=== PATIENT | male | born 1950 | race Caucasian/White ===

== ENCOUNTER 2017-08-26 12:01 | Emergency (ER) | payer MEDICARE, OTHER ==
[2017-08-26 12:16] VITALS: BP 94/55
--- NOTE | 2017-08-26 12:42 | XRAY Report ---
Procedure Date: 08/26/2017 Accession Number: [id number] / [id number] Procedure: XR - Shoulder 3 View LT CPT Code: FULL RESULT: EXAM: LEFT SHOULDER RADIOGRAPHY EXAM DATE: 08/26/2017 12:30 PM. CLINICAL HISTORY: GLF shoulder pain. COMPARISON: None. TECHNIQUE: 4 views. FINDINGS: Bones: Acute transverse fracture at the surgical neck of the left humerus with mild impaction and mild posterior angulation. There also is a mildly displaced fracture of the humeral greater tuberosity. Joints: The glenohumeral and acromioclavicular joints are normal. Soft tissues: Mild soft tissue swelling over the lateral aspect of the left shoulder. IMPRESSION: Mildly impacted and angulated fracture of the surgical neck of the left humerus. Mildly displaced fracture of the left humeral greater tuberosity. RADIA
--- NOTE | 2017-08-26 13:27 | ED Physician Documentation ---
PD HPI UPPER EXT INJURY - Stated complaint Stated Complaint: GLF/ L ARM PX - Chief complaint Chief Complaint: Ext Problem - History obtained from History obtained from: Patient - History of Present Illness Location: Left, Shoulder, Arm Type of injury: Fall (slipped coming out of shower.) Where injury occurred: Home Timing - onset: How many days ago (5) Timing - duration: Days (5) Timing - details: Abrupt onset, Still present Worsened by: Moving, Palpating Associated symptoms: No: Weakness, Numbness, Swelling Contributing factors: No: Anticoagulated Similar symptoms before: Has not had sx before Recently seen: Not recently seen Review of Systems Constitutional: denies: Fever, Chills Nose: denies: Rhinorrhea / runny nose, Congestion Throat: denies: Sore throat Respiratory: denies: Cough GI: denies: Vomiting, Diarrhea Skin: denies: Abrasion (s), Laceration (s) Musculoskeletal: reports: Joint pain (just right shoulder) Neurologic: denies: Focal weakness, Numbness PD PAST MEDICAL HISTORY - Past Medical History Cardiovascular: Hypertension Psych: Bipolar disorder, Panic attacks, Post traumatic stress disorder - Past Surgical History General: Hiatal hernia repair - Present Medications Home Medications: Ambulatory Orders Medication Instructions Recorded Confirmed Gabapentin 600 mg 03/24/14 03/24/14 Lisinopril 40 mg 03/24/14 03/24/14 Simvastatin 03/24/14 03/24/14 diazePAM [Valium] 5 mg 03/24/14 03/24/14 traMADol [Ultram] 50 mg 03/24/14 03/24/14 HYDROcod/ACETAM 5/325 [Zearing 5/325] 1 tab PO Q6H PRN #20 tablet 08/26/17 Naproxen 375 mg PO BID #20 tablet 08/26/17 - Allergies Allergies/Adverse Reactions: Allergies Allergy/AdvReac Type Severity Reaction Status Date / Time NSAIDS (Non-Steroidal Allergy Unknown Verified 08/26/17 13:52 Anti-Inflamma - Social History Does the pt smoke?: No Smoking Status: Never smoker Does the pt drink ETOH?: Yes - Immunizations Immunizations are current?: Yes PD ED PE NORMAL - Vitals Vital signs reviewed: Yes - General General: Alert and oriented X 3, No acute distress (he seems comfortable if holding arm still to his side. ), Well developed/nourished - HEENT HEENT: Atraumatic - Neck Neck: Supple, no meningeal sign, No bony TTP, No adenopathy - Cardiac Cardiac: RRR, No murmur - Respiratory Respiratory: Clear bilaterally, Other (no chestwall tenderness) - Derm Derm: Normal color, Warm and dry - Extremities Extremities: Other (elbow and wrist not tender with good independent ROM. Right shoulder has guarded ROM and pain with any slight ROM. No gross deformity. ) - Neuro Neuro: Alert and oriented X 3, No motor deficit, No sensory deficit, Normal speech Results - Vitals Vitals: Oxygen O2 Source Room air - Rads (name of study) humerus Radiology: Prelim report reviewed, EMP read contemporaneously (humeral neck fracture, impacted, nondisplaced. ) PD MEDICAL DECISION MAKING - ED course Complexity details: reviewed results, considered differential, d/w patient - Sepsis Event Vital Signs: Oxygen O2 Source Room air Departure - Departure Disposition: 01 Home, Self Care Clinical Impression: Fall from slip, trip, or stumble Qualifiers: Encounter type: initial encounter Qualified Code(s): W01.0XXA - Fall on same level from slipping, tripping and stumbling without subsequent striking against object, initial encounter Fx humeral neck Qualifiers: Encounter type: initial encounter Fracture type: closed Laterality: left Qualified Code(s): S42.212A - Unspecified displaced fracture of surgical neck of left humerus, initial encounter for closed fracture Condition: Stable Record reviewed to determine appropriate education?: Yes Instructions: ED Fx Shoulder Follow-Up: Julio C Jhaveri MD [Primary Care Provider] - [facility] [Provider Group] Prescriptions: HYDROcod/ACETAM 5/325 [Zearing 5/325] 1 tab PO Q6H PRN #20 tablet PRN Reason: Pain Naproxen 375 mg PO BID #20 tablet Comments: Use a sling for the arm for the next 3-4 weeks. Very gentle range of motion of the shoulder to keep her from being stiff. Follow-up with orthopedics in about a week, call for an appointment. Use anti-inflammatories such as naproxen or ibuprofen twice daily for the next 7-10 days. Add Tylenol or hydrocodone if needed for pain at times. Sleep and rest in the best position of comfort. Discharge Date/Time: 08/26/17 14:18
[2017-08-26] MEDS ORDERED: NAPROXEN 250 MG TABLET PO STA (13:43)
[2017-08-26] MEDS ORDERED: ACETAMINOPHEN 325 MG TABLET PO STA (13:43)
== END 2017-08-26 14:18 | disposition home or self-care (01) ==
LOC: ED 12:01
DX: S42.212A Unspecified displaced fracture of surgical neck of left humerus, initial encounter for closed fracture (principal); W18.2XXA Fall in (into) shower or empty bathtub, initial encounter; I10 Essential (primary) hypertension
CPT/HCPCS: 73030; 99282; 99283; A9270

== ENCOUNTER 2018-02-26 14:34 | Emergency (ER) | payer OTHER ==
--- NOTE | 2018-02-26 15:55 | XRAY Report ---
Reason: fall Procedure Date: 02/26/2018 Accession Number: [id number] / [id number] Procedure: XR - Hip w/Pelvis 2-3V RT CPT Code: FULL RESULT: EXAM: RIGHT HIP AND PELVIS RADIOGRAPHY EXAM DATE: 02/26/2018 03:42 PM. HISTORY: Fall, pain. COMPARISONS: None. TECHNIQUE: 1 view of the pelvis and 1 view of the hip. FINDINGS: Bones: Right acetabular fracture with comminution and protrusio. No other definite fracture or bone lesion. Joints: Mild bilateral hip joint space narrowing with marginal lipping. Unremarkable SI joints and pubic symphysis. Soft Tissues: Nonspecific bowel gas. Surgical clip in the lower pelvis. IMPRESSION: Right acetabular fracture. RADIA
--- NOTE | 2018-02-26 17:11 | ED Physician Documentation ---
PD HPI LOWER EXT INJURY - Stated complaint Stated Complaint: RT HIP PX - Chief complaint Chief Complaint: Trauma Ext - History obtained from History obtained from: Patient - History of Present Illness PD HPI LOW EXT INJURY LOCATION: Right, Hip Type of injury: Fall Where injury occurred: Home Timing - onset: How many days ago (3) Timing - duration: Days Timing - details: Abrupt onset (he says he slipped in bare feet and fell to the right. Pain at right hip. Has marked pain with walking to bathroom, using cane, and has been in bed mainly otherwise. Denies other imjury.) Improved by: Rest Worsened by: Moving, Other (weight bearing). No: Palpating Associated symptoms: No: Weakness, Numbness, Tingling Contributing factors: No: Anticoagulated, Prior ortho surgery Similar symptoms before: Has not had sx before Recently seen: Not recently seen Review of Systems Constitutional: denies: Fever, Chills Nose: denies: Rhinorrhea / runny nose, Congestion Throat: denies: Sore throat Cardiac: denies: Chest pain / pressure Respiratory: denies: Cough GI: denies: Abdominal Pain, Vomiting, Diarrhea Musculoskeletal: denies: Neck pain, Back pain Neurologic: denies: Focal weakness, Numbness, Altered mental status, Headache, Head injury PD PAST MEDICAL HISTORY - Past Medical History Cardiovascular: Hypertension Psych: Bipolar disorder, Panic attacks, Post traumatic stress disorder Musculoskeletal: None - Past Surgical History Past Surgical History: Yes General: Hiatal hernia repair - Present Medications Home Medications: Ambulatory Orders Medication Instructions Recorded Confirmed Gabapentin 600 mg PO Q6HR 03/24/14 02/26/18 Lisinopril 40 mg PO DAILY 03/24/14 02/26/18 diazePAM [Valium] 5 mg PO Q6HR 03/24/14 02/26/18 traMADol [Ultram] 50 mg PO Q6HR 03/24/14 02/26/18 Carvedilol [Coreg] 1 tab PO BID 02/26/18 02/26/18 Docusate Sodium 100 mg PO DAILY #30 capsule 02/26/18 Oxycodone HCl/Acetaminophen 1 each PO Q6H PRN #25 tablet 02/26/18 [Percocet 5-325 mg Tablet] amLODIPine [Norvasc] 1 tab PO DAILY 02/26/18 02/26/18 - Allergies Allergies/Adverse Reactions: Allergies Allergy/AdvReac Type Severity Reaction Status Date / Time NSAIDS (Non-Steroidal Allergy Unknown Verified 02/26/18 14:46 Anti-Inflamma - Social History Does the pt smoke?: No Smoking Status: Never smoker Does the pt drink ETOH?: Yes Does the pt have substance abuse?: No - Immunizations Immunizations are current?: Yes - POLST Patient has POLST: No PD ED PE NORMAL - Vitals Vital signs reviewed: Yes - General General: Alert and oriented X 3, No acute distress (seems comfortable lying; has moderate pain with ROM of the hip on the cart and with impaction and rotational movement. Will try ambulating with walker. ), Well developed/nourished - HEENT HEENT: Atraumatic - Neck Neck: Supple, no meningeal sign, No bony TTP - Cardiac Cardiac: RRR, No murmur - Respiratory Respiratory: Clear bilaterally - Abdomen Abdomen: Soft, Non tender - Back Back: No CVA TTP, No spinal TTP - Derm Derm: Normal color - Extremities Extremities: Other (right hip tender on ROM and with impaction. No noted deformity. Good pulses and cap refill distally. ) - Neuro Neuro: No motor deficit, No sensory deficit Results - Vitals Vitals: Oxygen O2 Source Room air - Rads (name of study) hip xray Radiology: Prelim report reviewed (hip okay; has acetabular fracture) pelvic CT Radiology: Prelim report reviewed (acetabular and iliac wing fractures as described in report. ), See rad report PD MEDICAL DECISION MAKING - ED course Complexity details: reviewed results, re-evaluated patient (he is able to walk with walker in ER. Pain control and functional ambulation is the del real factors, so he seems stable for discharge. ), considered differential, d/w patient Departure - Departure Disposition: 01 Home, Self Care Clinical Impression: Acetabular fracture Qualifiers: Encounter type: initial encounter Sublocation of acetabulum: unspecified portion of acetabulum Fracture type: closed Fracture alignment: nondisplaced Laterality: right Qualified Code(s): S32.401A - Unspecified fracture of right acetabulum, initial encounter for closed fracture Condition: Stable Record reviewed to determine appropriate education?: Yes Instructions: ED Fx Pelvis Follow-Up: Julio C Jhaveri MD [Primary Care Provider] - [facility] [Provider Group] Prescriptions: Docusate Sodium 100 mg PO DAILY #30 capsule Oxycodone HCl/Acetaminophen [Percocet 5-325 mg Tablet] 1 each PO Q6H PRN #25 tablet PRN Reason: pain Comments: You did break the acetabulum part of the pelvis and it does extend to the iliac wing. This will make it hurt with walking and weightbearing but is typically treated non-surgically with some support for weightbearing and light walking. Use Tylenol if needed for mild pain and Percocet if needed for worse pain. Use it daily stool softeners if you do not get constipated from the medication. Follow-up with your primary care in the next several days to week, call for an appointment tomorrow. See if they want you to follow-up with an orthopedist regarding the healing of this. Stay well-hydrated. Discharge Date/Time: 02/26/18 18:57
[2018-02-26] MEDS ORDERED: oxyCODONE 5 MG TABLET PO STA (17:47)
--- NOTE | 2018-02-26 18:28 | CT Report ---
Reason: ACETABULAR fracture on xray Procedure Date: 02/26/2018 Accession Number: [id number] / [id number] Procedure: CT - Pelvis W/O CPT Code: FULL RESULT: EXAM: CT BONY PELVIS WITHOUT CONTRAST EXAM DATE: 02/26/2018 05:55 PM. CLINICAL HISTORY: Acetabular fracture on x-ray. COMPARISON: None. TECHNIQUE: Thin-section axial images were acquired of the pelvis without contrast. Post-processing: Coronal and sagittal reformats. Other: None. In accordance with CT protocol optimization, one or more of the following dose reduction techniques were utilized for this exam: automated exposure control, adjustment of mA and/or KV based on patient size, or use of iterative reconstructive technique. FINDINGS: Bones: There is a comminuted fracture involving the anterior and posterior columns of the right acetabulum with mild medial displacement of fracture fragments up to 3 mm. There is superior fracture extension to the iliac wing. The fracture extends to the lateral margins of the right superior pubic ramus. No other pelvic fracture seen. Sacroiliac Joints: Degenerative changes with partial fusion of the sacroiliac joints. Symphysis Pubis: Unremarkable. Right Hip: Mild joint space narrowing with small marginal osteophytes. No dislocation. Left Hip: Mild joint space narrowing. Small marginal osteophytes. No dislocation. Musculature: Normal. No fatty atrophy. Pelvic Cavity: There is right pelvic sidewall and presacral hemorrhagic stranding. Slight enlargement of the right iliacus muscle secondary to hematoma. No evidence of urinary bladder disruption. Other: No lymphadenopathy. No free air or free fluid. The other visualized soft tissues are unremarkable. IMPRESSION: 1. Comminuted, mildly displaced both column right acetabular fracture with iliac wing extension. RADIA
[2018-02-26 18:50] VITALS: BP 154/86
== END 2018-02-26 18:57 | disposition home or self-care (01) ==
LOC: ED 14:34
DX: I10 Essential (primary) hypertension (principal); S32.431A Displaced fracture of anterior column [iliopubic] of right acetabulum, initial encounter for closed fracture; S32.441A Displaced fracture of posterior column [ilioischial] of right acetabulum, initial encounter for closed fracture; W01.0XXA Fall on same level from slipping, tripping and stumbling without subsequent striking against object, initial encounter; Y92.009 Unspecified place in unspecified non-institutional (private) residence as the place of occurrence of the external cause
CPT/HCPCS: 72192; 73502; 99283; A9270

== ENCOUNTER 2018-03-09 12:05 | Emergency (ER) | payer OTHER ==
[2018-03-09] MEDS ORDERED: HYDROmorphone 1 MG/ML CARPUJECT IVP STA (13:06)
[2018-03-09] MEDS ORDERED: SODIUM CHLORIDE 0.9% 1,000 ML IV ONE (13:06)
--- NOTE | 2018-03-09 13:08 | ED Physician Documentation ---
History of Present Illness - Stated complaint Stated Complaint: MED REFILL - Chief complaint Chief Complaint: General - History obtained from History obtained from: Patient - History of Present Illness Timing: Other (This is a 67-year-old gentleman with history of bipolar disorder repeated brain injuries with "87% he says of normal cognitive function. He has had a lot of falls recently and fell and broke his pelvis About a week ago. He has uncontrolled pain and is out of his pain medications and also says he cannot eat. When asked why he thinks he cannot eat he says he thinks it is because of his hypothalamus being injured in previous trauma. He has required tube feedings in the past. He did lie to me about his pain prescriptions. He says that he has not filled his tramadol yet this month but review of the [employer] shows that he filled 112 tramadol on February 13 of this month. That said it is understandable for him to be out early as he has a broken pelvis.) Review of Systems Ten Systems: 10 systems reviewed and negative Constitutional: reports: Fatigue, Weight Loss. denies: Fever, Chills Cardiac: denies: Chest pain / pressure, Palpitations Respiratory: denies: Dyspnea, Cough PD PAST MEDICAL HISTORY - Past Medical History Past Medical History: Yes Cardiovascular: Hypertension Psych: Bipolar disorder, Panic attacks, Post traumatic stress disorder - Past Surgical History Past Surgical History: Yes General: Hiatal hernia repair - Present Medications Home Medications: Ambulatory Orders Medication Instructions Recorded Confirmed Gabapentin 600 mg PO Q6HR 03/24/14 02/26/18 Lisinopril 40 mg PO DAILY 03/24/14 02/26/18 diazePAM [Valium] 5 mg PO Q6HR 03/24/14 02/26/18 traMADol [Ultram] 50 mg PO Q6HR 03/24/14 02/26/18 Carvedilol [Coreg] 1 tab PO BID 02/26/18 02/26/18 Docusate Sodium 100 mg PO DAILY #30 capsule 02/26/18 Oxycodone HCl/Acetaminophen 1 each PO Q6H PRN #25 tablet 02/26/18 [Percocet 5-325 mg Tablet] amLODIPine [Norvasc] 1 tab PO DAILY 02/26/18 02/26/18 Megestrol Acetate 5 ml PO BID #100 ml 03/09/18 Sodium Chloride 1,000 mg MC BID #10 tablet.roseann 03/09/18 traMADol [Ultram] 50 mg PO Q4-6H PRN #20 tablet 03/09/18 - Allergies Allergies/Adverse Reactions: Allergies Allergy/AdvReac Type Severity Reaction Status Date / Time NSAIDS (Non-Steroidal Allergy Unknown Verified 02/26/18 14:46 Anti-Inflamma - Social History Does the pt smoke?: No Smoking Status: Never smoker Does the pt drink ETOH?: Yes Does the pt have substance abuse?: No - Immunizations Immunizations are current?: Yes - POLST Patient has POLST: No PD ED PE NORMAL - Vitals Vital signs reviewed: Yes - General General: Alert and oriented X 3, No acute distress - HEENT HEENT: PERRL, EOMI - Neck Neck: Supple, no meningeal sign, No bony TTP - Cardiac Cardiac: RRR, No murmur - Respiratory Respiratory: No respiratory distress, Clear bilaterally - Abdomen Abdomen: Soft, Non tender - Derm Derm: Normal color, Warm and dry - Extremities Extremities: No edema, No calf tenderness / cord - Neuro Neuro: Alert and oriented X 3, Normal speech Results - Vitals Vitals: Vital Signs - 24 hr 03/09/18 12:14 Temperature 36.8 C Heart Rate 95 Respiratory 18 Rate Blood Pressure 145/68 H O2 Saturation 98 Oxygen O2 Source Room air - Labs Labs: Laboratory Tests 03/09/18 03/09/18 03/09/18 13:17 13:17 13:17 WBC 8.3 RBC 3.62 L Hgb 11.9 L Hct 33.5 L MCV 92.5 MCH 33.0 H MCHC 35.6 RDW 13.3 Plt Count 527 H MPV 6.4 L Neut # (Auto) 7.0 H Lymph # (Auto) 0.8 L [place] # (Auto) 0.6 Eos # (Auto) 0.0 Baso # (Auto) 0.0 Absolute Nucleated RBC 0.00 Nucleated RBC % 0.0 Sodium 121 L Potassium 3.8 Chloride 84 L Carbon Dioxide 27 Anion Gap 10.0 BUN 11 Creatinine 0.6 Estimated GFR (MDRD) 135 Glucose 133 H Calcium 9.2 Total Bilirubin 0.5 AST 23 ALT 16 Alkaline Phosphatase 173 H Total Protein 7.2 Albumin 3.7 Globulin 3.5 Albumin/Globulin Ratio 1.1 Prealbumin 21 Lipase 31 PD MEDICAL DECISION MAKING - ED course ED course: Is a 67-year-old gentleman with predominantly mental health issues but also some substance issues. He drinks every day and uses marijuana heavily every day for a long time presents with weight loss and anorexia. His prealbumin and albumin are normal. He requested a feeding tube but there is no medical indication for this at this juncture. He needs a refill of his pain medications and I will give him a limited amount given the recent pelvic fracture and will also trial some Megace. Departure - Departure Disposition: 01 Home, Self Care Clinical Impression: Anorexia, Hyponatremia Acetabular fracture Qualifiers: Encounter type: subsequent encounter Sublocation of acetabulum: unspecified portion of acetabulum Fracture type: closed Fracture alignment: nondisplaced Laterality: unspecified laterality Fracture healing: with routine healing Qualified Code(s): S32.409D - Unspecified fracture of unspecified acetabulum, subsequent encounter for fracture with routine healing Condition: Good Record reviewed to determine appropriate education?: Yes Instructions: ED Fx Pelvis Prescriptions: Megestrol Acetate 5 ml PO BID #100 ml Sodium Chloride 1,000 mg MC BID #10 tablet.roseann traMADol [Ultram] 50 mg PO Q4-6H PRN #20 tablet PRN Reason: Pain Comments: Decrease beer and marijuana intake. Follow-up with your doctor in 2-3 days for recheck. Further prescriptions for pain medication should come from your primary care physician.
[2018-03-09 13:24] LABS: BASOPHILS % (AUTO) 0.3 %; EOSINOPHILS % (AUTO) 0.2 %; HGB - HEMOGLOBIN 11.9 g/dL (14.0-18.0); LYMPHOCYTES # (AUTO) 0.8 10^3/uL (1.5-3.5); LYMPHOCYTES % (AUTO) 9.5 %; MEAN CORPUSCULAR HGB CONC 35.6 g/dL (32.0-36.0); MEAN CORPUSCULAR VOLUME 92.5 fL (80.0-94.0); MEAN PLATELET VOLUME 6.4 fL (7.4-11.4); MONOCYTES # (AUTO) 0.6 10^3/uL (0.0-1.0); MONOCYTES % (AUTO) 6.6 %; NEUTROPHILS % (AUTO) 83.4 %; PLT - PLATELET COUNT 527 10^3/uL (130-450); RED BLOOD COUNT 3.62 10^6/uL (4.70-6.10); RED CELL DISTRIBUTION WIDTH 13.3 % (12.0-15.0); WHITE BLOOD COUNT 8.3 x10^3/uL (4.8-10.8)
[2018-03-09 13:37] LABS: ALBUMIN 3.7 g/dL (3.2-5.5); ALBUMIN/GLOBULIN RATIO 1.1 (1.0-2.2); BILIRUBIN,TOTAL 0.5 mg/dL (0.2-1.0); CALCIUM 9.2 mg/dL (8.5-10.3); CREATININE 0.6 mg/dL (0.6-1.2); TOTAL PROTEIN 7.2 g/dL (6.7-8.2)
[2018-03-09 14:35] VITALS: BP 166/90
== END 2018-03-09 14:45 | disposition home or self-care (01) ==
LOC: ED 12:05
DX: G89.11 Acute pain due to trauma (principal); S32.409A Unspecified fracture of unspecified acetabulum, initial encounter for closed fracture; W19.XXXA Unspecified fall, initial encounter; E87.1 Hypo-osmolality and hyponatremia; R63.0 Anorexia; F10.10 Alcohol abuse, uncomplicated; F12.10 Cannabis abuse, uncomplicated; F31.9 Bipolar disorder, unspecified; I10 Essential (primary) hypertension; Z76.0 Encounter for issue of repeat prescription; Z91.81 History of falling
CPT/HCPCS: 36415; 80053; 82533; 83690; 84134; 85025; 96361; 96374; 99283; J1170

== ENCOUNTER 2018-04-05 10:13 | Outpatient (CLI) | payer OTHER | END 2018-04-05 10:14 | disposition short-term general hospital (02) | LOC: EMS 10:13 | PROVIDERS: ATTEND Surgery | DX: R07.9 Chest pain, unspecified (principal) | CPT/HCPCS: A0425; A0427 ==

== ENCOUNTER 2018-07-10 10:21 | Outpatient (CLI) | payer OTHER ==
--- NOTE | 2018-07-11 17:18 | XRAY Report ---
Reason: SPECIFIED ARTHRITIS BILAT KNEES HANDS Procedure Date: 07/10/2018 Accession Number: [id number] / [id number] Procedure: XR - Knee 3 View BILAT CPT Code: FULL RESULT: EXAMS: 1. Right Knee Radiography 2. Left Knee Radiography EXAM DATE:07/10/2018 11:10 AM. CLINICAL HISTORY:Bilateral knee pain. COMPARISON: None. TECHNIQUE: 3 views each. FINDINGS: Right Knee: Bones: Normal. No fractures or bone lesions. Joints: Minor marginal spurring is seen in the patellofemoral compartment. No significant joint space narrowing. No effusion. No subluxations. Soft Tissues: Moderate vascular calcification is present. Left Knee: Bones: Normal. No fractures or bone lesions. Joints: Minor marginal spurring is seen in the patellofemoral compartment. No significant joint space narrowing. No effusion. No subluxations. Soft Tissues: Moderate vascular calcification is present. IMPRESSION: 1. Minimal bilateral knee DJD. 2. No acute osseous abnormality. 3. Diffuse vascular calcification. RADIA
--- NOTE | 2018-07-11 17:18 | XRAY Report ---
Reason: SPECIFIED ARTHRITIS BILAT KNEES HANDS Procedure Date: 07/10/2018 Accession Number: [id number] / [id number] Procedure: XR - Hand 3 View BILAT CPT Code: FULL RESULT: EXAMS: 1. Right Hand Radiography 2. Left Hand Radiography EXAM DATE: 07/10/2018 11:10 AM. CLINICAL HISTORY: Bilateral hand pain. COMPARISON: XR FINGER MIN 2 VIEWS 08/20/2009 7:27 PM. TECHNIQUE: 3 views each hand. FINDINGS: Right: Bones: Partial amputation of the distal phalanx of the thumb is seen. No fractures or bone lesions. Joints: There is moderate to severe osteoarthritic changes seen in the first carpometacarpal joint. The remainder of the joint spaces are relatively preserved. Soft Tissues: Normal. No soft tissue swelling. Left: Bones: Normal. No fractures or bone lesions. Joints: There is moderate to severe osteoarthritic changes seen in the first carpometacarpal joint. The remainder of the joint spaces are relatively preserved. Soft Tissues: Normal. No soft tissue swelling. IMPRESSION: 1. 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 2. 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 No acute osseous abnormality. RADIA
== END 2018-07-10 10:22 | disposition home or self-care (01) ==
LOC: DI 10:21
PROVIDERS: ATTEND Family Medicine
DX: M18.0 Bilateral primary osteoarthritis of first carpometacarpal joints (principal); M17.0 Bilateral primary osteoarthritis of knee; I70.90 Unspecified atherosclerosis; Z89.011 Acquired absence of right thumb

== ENCOUNTER 2018-08-25 13:06 | Outpatient (CLI) | payer OTHER | END 2018-08-25 13:07 | disposition critical access hospital (66) | LOC: EMS 13:06 | PROVIDERS: ATTEND Surgery | DX: S89.91XA Unspecified injury of right lower leg, initial encounter (principal); W01.0XXA Fall on same level from slipping, tripping and stumbling without subsequent striking against object, initial encounter; Y93.89 Activity, other specified; Y92.008 Other place in unspecified non-institutional (private) residence as the place of occurrence of the external cause | CPT/HCPCS: A0425; A0429 ==

== ENCOUNTER 2018-08-25 13:36 | Emergency (ER) | payer OTHER ==
--- NOTE | 2018-08-25 14:32 | XRAY Report ---
Reason: pain and swelling from fall Procedure Date: 08/25/2018 Accession Number: [id number] / [id number] Procedure: XR - Knee 3 View RT CPT Code: FULL RESULT: EXAM: RIGHT KNEE RADIOGRAPHY EXAM DATE: 08/25/2018 02:11 PM. CLINICAL HISTORY: Pain and swelling from fall. COMPARISON: KNEE 3 VIEW BILAT 07/10/2018 10:55 AM. TECHNIQUE: 3 views. FINDINGS: Bones: Oblique intra-articular fracture is seen involving the distal large lateral aspect of the right femoral condyle extending into the intracondylar notch of the distal right femur with widening of the fracture fragments up to 24 mm. Joints: Large right knee effusion. Mild degenerative changes of the right knee. No dislocation. Soft Tissues: Soft tissue swelling. Vascular calcification. IMPRESSION: 1. Oblique intra-articular distal right femur fracture. 2. Right knee effusion. RADIA
--- NOTE | 2018-08-25 15:11 | ED Physician Documentation ---
PD HPI LOWER EXT INJURY - Stated complaint Stated Complaint: GLF - Chief complaint Chief Complaint: Trauma Ext - History obtained from History obtained from: Patient - History of Present Illness PD HPI LOW EXT INJURY LOCATION: Right, Knee Type of injury: Fall Where injury occurred: Home Timing - onset: How many hours ago (1) Timing - details: Abrupt onset Pain level max: 8 Pain level now: 8 Improved by: Rest, Immobilization Worsened by: Moving, Palpating Associated symptoms: Swelling. No: Weakness, Numbness, Tingling Contributing factors: No: Anticoagulated, Prior ortho surgery Recently seen: Not recently seen Review of Systems Ten Systems: 10 systems reviewed and negative Constitutional: denies: Fever, Chills Throat: denies: Sore throat GI: denies: Nausea, Vomiting, Diarrhea Skin: denies: Rash Musculoskeletal: denies: Neck pain, Back pain PD PAST MEDICAL HISTORY - Past Medical History Cardiovascular: Hypertension Psych: Bipolar disorder, Panic attacks, Post traumatic stress disorder Musculoskeletal: None - Past Surgical History Past Surgical History: Yes General: Hiatal hernia repair - Present Medications Home Medications: Ambulatory Orders Medication Instructions Recorded Confirmed Gabapentin 600 mg PO Q6HR 03/24/14 02/26/18 Lisinopril 40 mg PO DAILY 03/24/14 02/26/18 diazePAM [Valium] 5 mg PO Q6HR 03/24/14 02/26/18 traMADol [Ultram] 50 mg PO Q6HR 03/24/14 02/26/18 Carvedilol [Coreg] 1 tab PO BID 02/26/18 02/26/18 Docusate Sodium 100 mg PO DAILY #30 capsule 02/26/18 Oxycodone HCl/Acetaminophen 1 each PO Q6H PRN #25 tablet 02/26/18 [Percocet 5-325 mg Tablet] amLODIPine [Norvasc] 1 tab PO DAILY 02/26/18 02/26/18 Megestrol Acetate 5 ml PO BID #100 ml 03/09/18 Sodium Chloride 1,000 mg MC BID #10 tablet.roseann 03/09/18 traMADol [Ultram] 50 mg PO Q4-6H PRN #20 tablet 03/09/18 - Allergies Allergies/Adverse Reactions: Allergies Allergy/AdvReac Type Severity Reaction Status Date / Time NSAIDS (Non-Steroidal Allergy Unknown Verified 08/25/18 13:55 Anti-Inflamma - Social History Does the pt smoke?: No Smoking Status: Never smoker Does the pt drink ETOH?: Yes Does the pt have substance abuse?: No - Immunizations Immunizations are current?: Yes - POLST Patient has POLST: No PD ED PE NORMAL - Vitals Vital signs reviewed: Yes - General General: Alert and oriented X 3, No acute distress, Well developed/nourished - HEENT HEENT: PERRL, Moist mucous membranes - Neck Neck: Supple, no meningeal sign - Cardiac Cardiac: RRR - Respiratory Respiratory: Clear bilaterally - Abdomen Abdomen: Soft, Non tender, Non distended - Derm Derm: Warm and dry - Extremities Extremities: Other (TTP R knee, medial aspect, distal femur. NVI. ) - Neuro Neuro: Alert and oriented X 3 - Psych Psych: Normal mood, Normal affect Results - Vitals Vitals: Vital Signs - 24 hr 08/25/18 08/25/18 13:52 16:57 Temperature 36.0 C L Heart Rate 81 70 Respiratory 20 16 Rate Blood Pressure 90/68 139/79 H O2 Saturation 100 98 Oxygen O2 Source Room air - Labs Labs: Laboratory Tests 08/25/18 08/25/18 16:16 16:16 WBC 10.6 RBC 3.50 L Hgb 11.1 L Hct 33.8 L MCV 96.6 H MCH 31.7 H MCHC 32.8 RDW 12.6 Plt Count 247 MPV 9.2 Neut # (Auto) 8.1 H Lymph # (Auto) 1.6 Glenn # (Auto) 0.6 Eos # (Auto) 0.2 Baso # (Auto) 0.1 Absolute Nucleated RBC 0.00 Nucleated RBC % 0.0 Sodium 130 L Potassium 4.1 Chloride 90 L Carbon Dioxide 25 Anion Gap 15.0 H BUN 10 Creatinine 0.8 Estimated GFR (MDRD) 97 Glucose 94 Calcium 9.2 - Rads (name of study) Right femur x-ray Radiology: Prelim report reviewed, EMP read contemporaneously, See rad report (Oblique intra-articular distal right femur fracture. Right knee effusion.) R knee CT Radiology: Prelim report reviewed, EMP read contemporaneously, See rad report (Intra-articular mildly comminuted sagittal fracture of the medial femoral condyle with few small intra-articular comminuted fragments and mild comminution of the medial metaphyseal cortex. 1 cm distraction and proximal displacement. ) Procedures - Splint (location) R LE Splint applied by: Physician, Tech Type of splint: Long leg, Posterior Other: Patient tolerated well, No complications, Neurovascular intact PD MEDICAL DECISION MAKING - ED course Complexity details: reviewed results, re-evaluated patient, considered differential, d/w patient, d/w nurse consultant ED course: 68-year-old male with an oblique intra-articular distal right femur fracture. Discussed the case with orthopedics here, Dr. Ramos who recommends transfer to [facility] as he feels that this is above his skill level. Discussed the case with [facility], Dr. Foreman at 1545 who graciously accepts in transfer to the ER. Patient placed in a long-leg posterior splint. Pain controlled. Patient will be transferred to [facility]. COBRA forms filled out. Patient transferred This document was made in part using voice recognition software. While efforts are made to proofread this document, sound alike and grammatical errors may occur. Departure - Departure Disposition: 02 Transfer Acute Care Hosp Clinical Impression: Femoral distal fracture Qualifiers: Encounter type: initial encounter Fracture type: closed Fracture morphology: unspecified fracture morphology Laterality: right Qualified Code(s): S72.401A - Unspecified fracture of lower end of right femur, initial encounter for closed fracture Condition: Stable Discharge Date/Time: 08/25/18 18:25
[2018-08-25] MEDS ORDERED: oxyCODONE 5 MG TABLET PO STA (15:12)
[2018-08-25] MEDS ORDERED: SODIUM CHLORIDE 0.9% 1,000 ML IV ONE (15:41)
[2018-08-25 16:23] LABS: BASOPHILS # (AUTO) 0.1 10^3/uL (0.0-0.1); BASOPHILS % (AUTO) 0.5 %; EOSINOPHILS # (AUTO) 0.2 10^3/uL (0.0-0.7); EOSINOPHILS % (AUTO) 1.8 %; HGB - HEMOGLOBIN 11.1 g/dL (14.0-18.0); LYMPHOCYTES # (AUTO) 1.6 10^3/uL (1.5-3.5); LYMPHOCYTES % (AUTO) 15.3 %; MEAN CORPUSCULAR HEMOGLOBIN 31.7 pg (27.0-31.0); MEAN CORPUSCULAR HGB CONC 32.8 g/dL (32.0-36.0); MEAN CORPUSCULAR VOLUME 96.6 fL (80.0-94.0); MEAN PLATELET VOLUME 9.2 fL (7.4-11.4); MONOCYTES # (AUTO) 0.6 10^3/uL (0.0-1.0); NEUTROPHILS # (AUTO) 8.1 10^3/uL (1.5-6.6); NEUTROPHILS % (AUTO) 76.1 %; PLT - PLATELET COUNT 247 10^3/uL (130-450); RED CELL DISTRIBUTION WIDTH 12.6 % (12.0-15.0); WHITE BLOOD COUNT 10.6 x10^3/uL (4.8-10.8)
[2018-08-25 16:30] LABS: CALCIUM 9.2 mg/dL (8.5-10.3); CREATININE 0.8 mg/dL (0.6-1.2)
--- NOTE | 2018-08-25 16:37 | CT Report ---
Reason: R distal femur fracture Procedure Date: 08/25/2018 Accession Number: [id number] / [id number] Procedure: CT - LOWER EXTREMITY WO - RT CPT Code: FULL RESULT: EXAM: RIGHT HIP CT WITHOUT CONTRAST. EXAM DATE: 08/25/2018 04:11 PM. CLINICAL HISTORY: Right distal femur fracture. COMPARISON: KNEE 3 VIEW RT 08/25/2018 2:01 PM. TECHNIQUE: Thin-section axial images were acquired of the hip without contrast. Post-processing: Coronal and sagittal reformats. Other: None. In accordance with CT protocol optimization, one or more of the following dose reduction techniques were utilized for this exam: automated exposure control, adjustment of mA and/or KV based on patient size, or use of iterative reconstructive technique. FINDINGS: Bones: There is an intra-articular medial femoral condyle fracture with 1 cm distraction/proximal displacement. Mild comminution along the medial metaphysis cortex. Also, small intra-articular fragments in the intercondylar notch region. Remaining bony structures intact. Moderate osteopenia. Joints: Moderate joint effusion with lipohemarthrosis. Musculature: Normal. No fatty atrophy. Other: Mild soft tissue swelling around the knee. IMPRESSION: 1. Intra-articular mildly comminuted sagittal fracture of the medial femoral condyle with few small intra-articular comminuted fragments and mild comminution of the medial metaphyseal cortex. 1 cm distraction and proximal displacement. RADIA
[2018-08-25] MEDS ORDERED: MORPHINE 2 MG/ML CARPUJECT IVP STA (16:45)
[2018-08-25 16:58] VITALS: BP 139/79
[2018-08-25] MEDS ORDERED: HYDROmorphone 1 MG/ML CARPUJECT IVP STA ×2 (17:20→18:15)
[2018-08-25] MEDS ORDERED: ONDANSETRON 4 MG/2 ML VIAL IVP STA (18:22)
== END 2018-08-25 18:25 | disposition short-term general hospital (02) ==
LOC: EDUNIT# → ED 13:36
DX: S72.431A Displaced fracture of medial condyle of right femur, initial encounter for closed fracture (principal); W01.0XXA Fall on same level from slipping, tripping and stumbling without subsequent striking against object, initial encounter; Y93.89 Activity, other specified; Y92.008 Other place in unspecified non-institutional (private) residence as the place of occurrence of the external cause; I10 Essential (primary) hypertension
CPT/HCPCS: 29505; 36415; 73562; 73700; 80048; 85025; 96374; 96375; 96376; 99285; A9270; J1170

== ENCOUNTER 2020-05-17 15:30 | Outpatient (CLI) | payer BC ==
--- NOTE | 2020-05-17 16:33 | DEXA Report ---
PROCEDURE: Dexa Spine and/or Hip INDICATIONS: OSTEOPENIA TECHNIQUE: Dual energy x-ray absorptiometry (DXA) was performed on a [employer]. Regions measur ed are the AP Spine, femoral neck, and if needed forearm. COMPARISON: None. FINDINGS: Lumbar Spine: Bone Mineral Density 1.178 g/cm/cm,T score -0.3, Left Hip: Bone Mineral Density 0.694 g/cm/cm,T score -2.8, Left Femoral Neck: Bone Mineral Density 0.735 g/cm/cm, T score -2.6, (T score greater or equal to -1.0: NORMAL) (T score from -1.1 to -2.4: OSTEOPENIA) (T score less than or equal to -2.5 to: OSTEOPOROSIS) Impression: Osteoporosis. Patients with diagnosis of osteoporosis or osteopenia should have regular bone mineral density assess ment. For those eligible for Medicare, routine testing is allowed once every 2 years. Testing frequ ency can be increased for patients who have rapidly progressing disease or for those who are receivin g medical therapy to restore bone mass. Reviewed by: Ti Ferreira MD on 05/17/2020 4:32 PM PDT Approved by: Ti Ferreira MD on 05/17/2020 4:32 PM PDT Station ID: [id number]
== END 2020-05-17 15:31 | disposition home or self-care (01) ==
LOC: DI 15:30
PROVIDERS: ATTEND Family Medicine
DX: M81.0 Age-related osteoporosis without current pathological fracture (principal)

== ENCOUNTER 2023-09-25 08:30 | Outpatient (CLI) | payer BC, OTHER ==
--- NOTE | 2023-09-25 13:18 | XRAY Report ---
PROCEDURE: Hand 3+V LT INDICATIONS: LEFT HAND PAIN TECHNIQUE: 3 views of the hand(s) acquired. COMPARISON: 07/10/2018. 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 No acut e fracture or dislocation.. Moderate to severe first CMC joint osteoarthritic changes are seen. Late ral subluxation at first CMC joint is also noted. There is osteopenia. [id number] osteoarthriti c changes throughout rest of the left hand. No suspicious bony lesions. Soft tissues: No suspicious soft tissue calcifications or masses. IMPRESSION: Prior amputation of left thumb as above. No acute fracture or dislocation. 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 Mild osteoarthritic changes throughout rest of lef t hand. Osteopenia. No gross soft tissue abnormalities. Reviewed by: Ti Ferreira MD on 09/25/2023 1:16 PM PDT Approved by: Ti Ferreira MD on 09/25/2023 1:16 PM PDT Station ID: [id number]
== END 2023-09-25 08:31 | disposition home or self-care (01) ==
LOC: DI 08:30
PROVIDERS: ATTEND Nurse Practitioner Family
DX: M18.12 Unilateral primary osteoarthritis of first carpometacarpal joint, left hand (principal); M19.042 Primary osteoarthritis, left hand; M85.842 Other specified disorders of bone density and structure, left hand; Z89.012 Acquired absence of left thumb

== ENCOUNTER 2023-10-21 12:47 | Outpatient (CLI) | payer BC, OTHER ==
--- NOTE | 2023-10-21 17:55 | DEXA Report ---
PROCEDURE: Dexa Spine and/or Hip INDICATIONS: OSTEOPOROSIS TECHNIQUE: Dual energy x-ray absorptiometry (DXA) was performed on a [employer] System. Regions measur ed are the AP Spine, femoral neck, and if needed forearm. COMPARISON: DEXA 05/17/2020 FINDINGS: Lumbar Spine: Bone Mineral Density: 1.242 g/cm/cm,T score: 0.2. Since the most recent prior study, there has been a statistically significant increase in bone mineral density by 5.4 percent. Left Femoral Neck: Bone Mineral Density: 0.792 g/cm/cm, T score: -2.1. Left Hip: Bone Mineral Density: 0.735 g/cm/cm,T score: -2.5. Since the most recent prior study, there has been a statistically significant increase in bone mineral density by 5.9 percent. FRAX score not calculated due to T score of -2.5. (T score greater or equal to -1.0: NORMAL) (T score from -1.1 to -2.4: OSTEOPENIA) (T score less than or equal to -2.5 to: OSTEOPOROSIS) Impression: By WHO criteria, this patient has osteoporosis. Interval statistical increase in bone mineral density of the lumbar spine. Interval statistical incre ase in bone mineral density of the hip. Patients with diagnosis of osteoporosis or osteopenia should have regular bone mineral density assess ment. For those eligible for Medicare, routine testing is allowed once every 2 years. Testing frequ ency can be increased for patients who have rapidly progressing disease or for those who are receivin g medical therapy to restore bone mass. Reviewed by: Kostas Panda MD on 10/21/2023 4:54 PM [facility] Approved by: Kostas Panda MD on 10/21/2023 4:54 PM YOUSUF Station ID: [id number]
== END 2023-10-21 12:48 | disposition home or self-care (01) ==
LOC: DI 12:47
PROVIDERS: ATTEND Nurse Practitioner Family
DX: M81.0 Age-related osteoporosis without current pathological fracture (principal)